=== PATIENT | female | born 1985 | race Caucasian/White ===

== ENCOUNTER 2020-02-02 10:35 | Emergency (ER) | payer OTHER, SELFPAY ==
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
[2020-02-02 10:50] LABS: Apearance,Urine Clear (Clear); Color,Urine Orange (Yellow); Specific Gravity, Urine 1.015 (1.005-1.030)
[2020-02-02 10:51] VITALS: BP 131/90; PULSE 107; RESP 14; O2SAT 100; BMI 18.6
[2020-02-02 10:51] LABS: Bilirubin,Urine Negative (Negative); Blood, Urine 1+ (Negative); Glucose,Urine (UA) Negative (Negative); Ketones,Urine Negative (Negative); Protein,Urine 1+ (Negative); UTC Leukocyte Esterase,Urine Trace (Negative); UTC Nitrate,Urine Positive (Negative); Urobilinogen,Urine 2 EU/dl (0.2)
[2020-02-02 10:59] VITALS: BP 131/90; PULSE 107; RESP 14; TEMP 36.7; O2SAT 100
== END 2020-02-02 11:01 | disposition home or self-care (01) ==
PROVIDERS: Emergency Provider Nurse Practitioner Family; PCP Family Medicine
DX: N30.00 Acute cystitis without hematuria (principal); F17.210 Nicotine dependence, cigarettes, uncomplicated
CPT/HCPCS: 81003; 87086; 87088; 87186; 99201

== ENCOUNTER → 2020-02-28 13:54 | Outpatient (CLI) | payer OTHER, SELFPAY | PROVIDERS: Visit Provider Obstetrics & Gynecology | DX: Z32.00 Encounter for pregnancy test, result unknown (principal) | CPT/HCPCS: 36415; 84702 ==

== ENCOUNTER → 2020-03-13 11:09 | Outpatient (CLI) | payer OTHER, SELFPAY ==
--- NOTE | 2020-03-13 11:09 | US_ITS ---
PROCEDURE: US OB <= 14 WEEKS FETUS CLINICAL INDICATION: US OB Dates Early Ob ultrasound for dates COMPARISON: No exams were available for comparison FINDINGS: An intrauterine gestational sac is present with a pole with a crown-rump length of 3.33cm correlating to gestational age of 10weeks 2days. heart tones are present with an FHR of 156bpm. Yolk sac is noted. The chorion and amnion have not yet fused. Unremarkable adnexa. IMPRESSION: Live IUP at 10 weeks 2 days Estimated due date by Ultrasound is 10/07/2020 Dictated by: Guzman Redmond MD 03/13/2020 15:46 Guzman Redmond MD in [place] 03/13/2020 15:46
== END ==
PROVIDERS: PCP Family Medicine; Visit Provider Obstetrics & Gynecology
DX: O26.841 Uterine size-date discrepancy, first trimester (principal)
CPT/HCPCS: 76801

== ENCOUNTER → 2020-03-26 09:55 | Outpatient (CLI) | payer OTHER, SELFPAY ==
[2020-03-26 11:17] LABS: Basophils % 0.4 % (0.1-2.0); Eosinophils # 0.3 K/mm3 (0.0-0.4); Eosinophils % 3.8 % (0.1-12.0); Hematocrit 36.7 % (37.0-47.0); Hemoglobin 12.7 g/dL (12.2-16.2); Lymphocytes # 2.2 K/mm3 (0.7-4.5); Lymphocytes % 26.7 % (10-50); Mean Corpuscular HGB Conc 34.7 g/dL (31.8-35.4); Mean Corpuscular Hemoglobin 29.7 pg (27.0-31.2); Mean Corpuscular Volume 85.6 fl (81-99); Mean Platelet Volume 7.4 fl (7.4-10.4); Monocytes # 0.3 K/mm3 (0.1-1.0); Monocytes % 3.6 % (1.7-9.3); Neutrophils # 5.4 K/mm3 (1.8-7.8); Neutrophils % 65.6 % (37.0-80.0); Platelet Count 239 K/mm3 (142-424); Red Blood Count 4.28 M/mm3 (4.20-5.40); Red Cell Distribution Width 14.3 % (11.5-17.5); White Blood Count 8.2 K/mm3 (4.8-10.8)
[2020-03-27 09:51] LABS: HIV Screen 4th Generation wRfx Non Reactive (Non Reactive); Rubella Antibodies, IgG 7.07 index (Immune >0.99)
[2020-03-27 10:49] LABS: Hepatitis B Surface Antigen Negative (Negative); Hepatitis C Antibody <0.1 s/co ratio (0.0-0.9)
[2020-03-27 13:25] LABS: Rapid Plasma Reagin Ab Titer Non Reactive (NonRea<1:1)
== END ==
PROVIDERS: Visit Provider Obstetrics & Gynecology
DX: Z34.90 Encounter for supervision of normal pregnancy, unspecified, unspecified trimester (principal)
CPT/HCPCS: 36415; 85025; 86592; 86703; 86762; 86850; 87340; 87380; G0432

== ENCOUNTER → 2020-06-05 14:48 | Outpatient (CLI) | payer OTHER, SELFPAY ==
--- NOTE | 2020-06-05 14:49 | US_ITS ---
PROCEDURE: US OB >= 14 WEEKS FETUS CLINICAL INDICATION: US OB Complete COMPARISON: US US OB <= 14 WEEKS FETUS from 03/13/2020 FINDINGS: There is a single live fetus which is in breech presentation. Placenta is posterior and grade 1. The cervix is closed and measures 4 cm. Placenta previa is present with placenta covering the cervical os. Complete survey performed and was unremarkable on the submitted images as in PACS. No discrete anomalies identified on survey imaging by technologist. Active fetus. Three-vessel cord with satisfactory umbilical cord insertion. 4- chamber heart noted. Survey of brain & ventricles Unremarkable. Face and neck survey unremarkable. Diaphragm and chest views unremarkable. Abdomen: Both kidneys noted and unremarkable. Stomach noted and satisfactory. Spine: Survey of the spine satisfactory with no anomalies identified nor imaged. Both arms and legs noted. Amniotic Fluid: Adequate. Maternal adnexa: No significant findings. Measurements: Average ultrasound age 22weeks 1day. Gestational Age 22weeks 2days Estimated due date by ultrasound age 0710/08/2020. Estimated weight 472g BPD = 22weeks 2days OFD = 22weeks 3days HC = 21weeks 4days AC = 22weeks 1day FL = 22weeks 2days Growth Percentile= 32Percent% Heart Rate = 149bpm Cerebellum = 22weeks 2days Humerus = 22weeks HC/AC is 1.13 CI is 0.78 FL/BPD is 0.71 FL/AC is 0.22 IMPRESSION: Single live IUP in breech presentation. Average ultrasound age is 22 weeks 1 day. No obvious anomalies are evident. There is posterior placenta with placenta previa. Follow-up suggested to confirm 3rd trimester location. Dictated by: Guzman Redmond MD 06/06/2020 15:25 Guzman Redmond MD in [place] 06/06/2020 15:25
== END ==
PROVIDERS: PCP Family Medicine; Visit Provider Obstetrics & Gynecology
DX: Z36.0 Encounter for antenatal screening for chromosomal anomalies (principal)
CPT/HCPCS: 76805

== ENCOUNTER 2022-05-17 19:49 | Emergency (ER) | payer OTHER, SELFPAY ==
[2022-05-17 19:52] VITALS: BP 117/79; PULSE 110; RESP 17; TEMP 37; O2SAT 98; BMI 20.3
[2022-05-17 20:21] LABS: Microscopic, Urine URINE MICROSCOPIC (MICROSCOPIC)
--- NOTE | 2022-05-17 20:25 | HMH.EDUROGF ---
Discharge Plan Disposition Patient Disposition: Home, Self-Care Prescriptions Prescriptions: New levofloxacin 500 mg tablet 500 mg PO DAILY Qty: 7 0RF No Action buprenorphine HCl 8 mg tablet, sublingual 8 mg SUBLINGUAL DAILY Referrals Follow up/Referrals: Anand Robertson MD [Primary Care Provider] - See instructions Clinical Impressions Clinical Impression: UTI (urinary tract infection) Instructions Patient Instructions: DI for Urinary Tract Infection (UTI) Discharge ED Provider: Manny (ED),Miguel Ángel Rodriguez Female Urogenital HPI General Chief complaint: Urogenital-Female Stated complaint: Possible UTI With Blood&Clots Time Seen by Provider: 05/17/22 20:25 Mode of Arrival: Family Vehicle Source of Information: Patient and Medical Record Limitations: No Limitations Description of Symptoms (Recalled from ER Triage Doc. by RN): Pt c/o UTI symptoms that began yesterday. States she felt she was not voiding well. Today, she noticed burning with urination and leaking urine. This evening reports that the incontinence is worse and began to have small blood clots in her urine. She did take Azo & Motrin @ 1700 today. No other medication [employer]. Denies fever, chills, or n/v/d. Denies any abd pain, tenderness or distention. History of Present Illness HPI Narrative: lower abd pain over the last 2 days with dysuria and urgency and blood in urine Complaint: dysuria and UTI Onset (ago): day(s) Location: suprapubic Severity: moderate Duration: intermittent Urinary Symptoms: dysuria, urgency, frequency and hematuria Related Data Home Medications Medication Instructions Recorded Confirmed buprenorphine HCl 8 mg sublingual 8 mg sublingual DAILY hx of 03/26/20 05/17/22 tablet addiction Previous Rx's Medication Instructions Recorded levofloxacin 500 mg tablet 500 mg PO DAILY #7 tabs 05/17/22 Allergies Allergy/AdvReac Type Severity Reaction Status Date / Time No Known Drug Allergies Allergy Unknown Verified 08/06/20 13:34 [facility] Disclaimer: The information contained in this section may have been updated after the patient was seen, as this information can be updated by other users. Social History Smoking Status: Current every day smoker tobacco type: cigarettes packs per day: 1 second hand exposure: Yes alcohol intake: never substance use type: former substance user and heroin current occupational status: other Travel in the last 8 weeks: None ROS Obtained: Yes All systems reviewed & no additional complaints except as documented Physical Exam General General appearance: alert Head Head exam: normocephalic Eye Eye exam: Present PERRL and EOMI ENT ENT exam: Present mucous membranes moist Neck Neck exam: Present trachea midline Respiratory Respiratory exam: Absent respiratory distress Cardiovascular Cardiovascular exam: Present regular rate Abdominal Exam Abdominal exam: Present soft Abdominal tenderness: Present suprapubic and moderate Extremities Exam Extremities exam: Present full ROM Neurological Exam Neurological exam: Present alert and CN II-XII intact; Absent motor sensory deficit Psychiatric Psychiatric exam: Present normal affect Skin Skin exam: Absent rash Medical Decision Making Medical Records Medical records reviewed: Yes I reviewed the patient's medical records. Arnaud Inquiry Pt receiving controlled substance: No Vital Signs: 05/17/22 19:52 05/17/22 21:14 05/17/22 21:14 Temperature 98.6 F 98.6 F Temperature Source Oral Pulse Rate 90 Pulse Rate [Right] 110 H Respiratory Rate 17 18 Blood Pressure 115/72 Blood Pressure [Right Arm] 117/79 Blood Pressure Mean [Right Arm] 91 Blood Pressure Source [Right Arm] Automatic Cuff 02 Sat by Pulse Oximetry 98 Oxygen Delivery Method Room Air Room Air Room Air Lab Data Lab results reviewed: Yes I reviewed the patient's lab results. Lab Results 05/17/22 20:02: Urine Color Red, Urin
[2022-05-17 20:29] LABS: Appearance,Urine TURBID (Clear); Blood, Urine 3+ (Negative); Color,Urine RED (Yellow); Glucose,Urine (UA) 1+ (Negative); Ketones,Urine 1+ (Negative); Leukocyte Esterase,Urine 3+ (Negative); Nitrate,Urine POSITIVE (Negative); PH,Urine 6.5 (5.0-8.5); Protein,Urine 3+ (Negative); Urobilinogen,Urine >=8.0 EU/dl (0.2)
[2022-05-17 20:39] LABS: Bilirubin,Urine 3+ (Negative)
[2022-05-17 20:59] LABS: Bacteria,Urine 2+ /lpf; RBC,Urine TNTC #/hpf (0-3); WBC,Urine 20-50 #/hpf (0-3)
[2022-05-17 21:14] VITALS: BP 115/72; PULSE 90; RESP 18; TEMP 37; O2SAT 99
[2022-05-17 21:27] LABS: Basophils # 0.1 K/mm3 (0-0.2); Basophils % 1.2 % (0.1-2.0); Eosinophils # 0.8 K/mm3 (0.0-0.4); Eosinophils % 6.7 % (0.1-12.0); Hematocrit 37.7 % (37.0-47.0); Hemoglobin 12.9 g/dL (12.2-16.2); Lymphocytes # 2.2 K/mm3 (0.7-4.5); Lymphocytes % 18.6 % (10-50); Mean Corpuscular HGB Conc 34.3 g/dL (31.8-35.4); Mean Corpuscular Hemoglobin 29.8 pg (27.0-31.2); Mean Corpuscular Volume 86.7 fl (81-99); Mean Platelet Volume 7.5 fl (7.4-10.4); Monocytes # 0.5 K/mm3 (0.1-1.0); Monocytes % 3.8 % (1.7-9.3); Neutrophils # 8.1 K/mm3 (1.8-7.8); Neutrophils % 69.7 % (37.0-80.0); Platelet Count 281 K/mm3 (142-424); Red Blood Count 4.34 M/mm3 (4.20-5.40); Red Cell Distribution Width 13.1 % (11.5-17.5); White Blood Count 11.6 K/mm3 (4.8-10.8)
[2022-05-17 21:33] LABS: Alanine Aminotransferase 13 U/L (12-78); Albumin Level 4.5 g/dl (3.5-5.0); Albumin/Globulin Ratio 1.9 (1.1-1.8); Alkaline Phosphatase 52 U/L (38-126); Anion Gap 7.6 mEq/L (5-15); Aspartate Amino Transferase 33 U/L (14-36); Bilirubin,Total 1.5 mg/dl (0.2-1.3); Blood Urea Nitrogen 11 mg/dl (7-17); Carbon Dioxide 25 mmol/L (22.0-30.0); Chloride 111 mmol/L (98-107); Creatinine Clearance Estimated 79 mL/min (50-200); Estimated Glomerular Filt Rate 80 ml/min (>60); GFR (African American) 97 ML/MIN (>60); Globulin 2.4 g/dL (1.3-3.2); Glucose 89 mg/dl (74-100); Potassium 3.6 mmoL/L (3.5-5.1); Sodium 140 mmol/L (136-145); Total Protein,Serum 6.9 g/dl (6.3-8.2)
== END 2022-05-17 21:53 | disposition home or self-care (01) ==
PROVIDERS: Emergency Provider Emergency Medicine; PCP Family Medicine
DX: N39.0 Urinary tract infection, site not specified (principal); F17.210 Nicotine dependence, cigarettes, uncomplicated
CPT/HCPCS: 80053; 81001; 85025; 87086; 96361; 96374; 96375; 99285; J0696

== ENCOUNTER 2022-12-20 09:16 | Emergency (ER) | payer OTHER, SELFPAY ==
[2022-12-20 09:17] VITALS: BP 152/79; PULSE 72; RESP 16; TEMP 36.7; O2SAT 100; BMI 18.6
--- NOTE | 2022-12-20 09:28 | PC.NURSE ---
Dr. Aguayo at [facility] for pt eval
--- NOTE | 2022-12-20 09:48 | HMH.EDGENADL ---
Discharge Plan Disposition Patient Disposition: Home, Self-Care Prescriptions Prescriptions: New amoxicillin-pot clavulanate 875-125 mg tablet 1 tab PO BID 7 Days Qty: 14 0RF No Action buprenorphine HCl 8 mg tablet, sublingual 8 mg SUBLINGUAL DAILY levofloxacin 500 mg tablet 500 mg PO DAILY Qty: 7 0RF Referrals Follow up/Referrals: Anand Robertson MD [Primary Care Provider] - See instructions Activity Restrictions/Add. Instructions Additional Instructions/Restrictions: Call your family doctor to establish care for this visit to the emergency department and schedule follow-up within 48 hours to ensure improvement. If you have any worsening of your condition or any other concerning signs or symptoms, return to the emergency department or your primary care doctor for further evaluation. Augmentin twice daily for 7 days Clinical Impressions Clinical Impression: Abscess, dental Discharge ED Provider: Ernesto Aguayo General Adult HPI General Chief complaint: Dental/Oral Stated complaint: root canal 12/16, face swollen Time Seen by Provider: 12/20/22 09:18 Mode of Arrival: Ambulatory Source of Information: Patient Limitations: No Limitations Description of Symptoms (Recalled from ER Triage Doc. by RN): Patient reports having a root canal on Wednesday and yesterday she began to have facial swelling. States she just can't take it anymore. 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 Patient states facial swelling started 2 days prior. Since that time, has gotten worse. Dentist is not open today, given it is Wednesday, 12/20, so came to the ER for further evaluation. She states she has swelling on the roof of her mouth as well which is new and swelling in the left side of her face. No fevers or chills, nausea, vomiting, or any other concerning symptoms. Related Data Home Medications Medication Instructions Recorded Confirmed buprenorphine HCl 8 mg sublingual 8 mg sublingual DAILY hx of 03/26/20 05/17/22 tablet addiction Previous Rx's Medication Instructions Recorded levofloxacin 500 mg tablet 500 mg PO DAILY #7 tabs 05/17/22 amoxicillin 875 mg-potassium 1 tab PO BID 7 days #14 tabs 12/20/22 clavulanate 125 mg tablet Allergies Allergy/AdvReac Type Severity Reaction Status Date / Time No Known Drug Allergies Allergy Unknown Verified 08/06/20 13:34 [facility] Disclaimer: The information contained in this section may have been updated after the patient was seen, as this information can be updated by other users. Social History Smoking Status: Current every day smoker tobacco type: cigarettes packs per day: 1 second hand exposure: Yes alcohol intake: never substance use type: former substance user and heroin current occupational status: other Travel in the last 8 weeks: None ROS Obtained: Yes All systems reviewed & no additional complaints except as documented Physical Exam General General appearance: alert and in no apparent distress Head Head exam: atraumatic, normocephalic and other (Facial swelling left side of face with induration. Painful to touch. No lymphadenopathy.) Eye Eye exam: Present normal appearance, PERRL and EOMI ENT ENT exam: Present mucous membranes moist and other (swelling and fluctuance hard palate behind tooth 9. No evidence of tonsillitis, exudate, pharyngeal erythema, uvular deviation, palatal swelling, dental abscess, angioedema, or other abnormal paresh pharyngeal findings) Neck Neck exam: Present normal inspection, full ROM and trachea midline Respiratory Respiratory exam: Absent respiratory distress, wheezes, stridor, accessory muscle use or prolonged expiratory phase Cardiovascular Cardiovascular exam: Present normal rhythm Abdominal Exam Abdominal exam: Present soft; Absent
[2022-12-20 10:47] VITALS: BP 149/70; PULSE 70; RESP 20; TEMP 36.7; O2SAT 97
== END 2022-12-20 10:48 | disposition home or self-care (01) ==
PROVIDERS: Emergency Provider Emergency Medicine; PCP Family Medicine
DX: R22.0 Localized swelling, mass and lump, head (principal); K12.2 Cellulitis and abscess of mouth; F11.11 Opioid abuse, in remission; F17.210 Nicotine dependence, cigarettes, uncomplicated
CPT/HCPCS: 41008; 99283

== ENCOUNTER 2023-01-09 11:59 | Emergency (ER) | payer OTHER, SELFPAY ==
[2023-01-09 12:00] VITALS: BP 153/77; PULSE 98; RESP 18; TEMP 36.8; O2SAT 99; BMI 19.5
[2023-01-09 12:31] VITALS: BP 151/82; PULSE 88; O2SAT 99
--- NOTE | 2023-01-09 13:23 | PC.NURSE ---
Assumed patient care at this time
[2023-01-09 13:27] VITALS: BP 122/86; PULSE 58; O2SAT 99
[2023-01-09 13:37] VITALS: BP 124/59; PULSE 66; RESP 16; O2SAT 97
--- NOTE | 2023-01-09 13:39 | PC.NURSE ---
Rounded on patient; updated on plan of care. Nothing needed at this time. Call light within reach
--- NOTE | 2023-01-09 13:58 | HMH.EDGENADL ---
Discharge Plan Disposition Patient Disposition: Home, Self-Care Condition: Good Prescriptions Prescriptions: New hydroxyzine pamoate 25 mg capsule 25 mg PO Q6H PRN (Reason: itching) Qty: 16 0RF methylprednisolone [Medrol (Marko)] 4 mg tablets,dose pack 4 mg PO DAILY Qty: 21 0RF No Action buprenorphine HCl 8 mg tablet, sublingual 8 mg SUBLINGUAL DAILY levofloxacin 500 mg tablet 500 mg PO DAILY Qty: 7 0RF amoxicillin-pot clavulanate 875-125 mg tablet 1 tab PO BID 7 Days Qty: 14 0RF Referrals Follow up/Referrals: Anand Robertson MD [Primary Care Provider] - See instructions Activity Restrictions/Add. Instructions Additional Instructions/Restrictions: Please follow-up with your primary care provider. Please return to the emergency department if you develop any new or worsening symptoms or become concerned for your health. You have been given a prescription for hydroxyzine, please take this as directed. As we discussed, recommend that you do not use Benadryl, hydroxyzine at the same time. You have also been given a prescription for a steroid course, please complete this as prescribed. Clinical Impressions Clinical Impression: Acute urticaria Allergic reaction Qualifiers: Encounter type: initial encounter Qualified Code(s): T78.40XA - Allergy, unspecified, initial encounter Discharge ED Provider: Corey Scott I General Adult HPI General Chief complaint: Allergic Reaction Stated complaint: POSSIBLE ALLERGIC REACTION, RASH Time Seen by Provider: 01/09/23 12:03 Mode of Arrival: Family Vehicle Source of Information: Patient Limitations: No Limitations Description of Symptoms (Recalled from ER Triage Doc. by RN): Pt c/o possible allergic reaction to recent antibiotic use. She had a root canal on 12/16 and she was prescribed Augmentin for 21 days. She was then changed to Amoxicillin for a 30 days supply d/t oral abscess. Wednesday she developed a rash and hives t/o her body. She was very itchy. [facility] her Prednisone 15 day supply. She is also taking tylenol, motrin, and benadryl. She last took Benadryl @ 0600 today (25mg). History of Present Illness HPI narrative: Patient is a 37-year-old female presenting to the emergency department due to concern for allergic reaction, hives and swelling of her face. History was conducted with the patient at bedside. Patient reports that she initially had a tooth extraction in November of this year. Following that extraction, had a adjacent abscess for which she was put on a prescription for Augmentin. She reports that she finished that prescription without difficulty. However, then had recurrence of symptoms in mid December, roughly January 01, was started on amoxicillin at that time. She reports that she took the last dose of amoxicillin Wednesday morning, Wednesday evening started to have worsening swelling, itching of her face. Was seen in urgent care and given a prescription for prednisone, had improvement in symptoms. However, after finishing her steroid course, had recurrence of symptoms. She reports that she has swelling of the face as well as hives, itching in her scalp. She denies any difficulty breathing, shortness of breath, throat swelling, nausea, vomiting, diarrhea, abdominal pain. Does not have any known history of anaphylaxis. Denies any fevers. Also denies any new foods, exposures. Related Data Home Medications Medication Instructions Recorded Confirmed buprenorphine HCl 8 mg sublingual 8 mg sublingual DAILY hx of 03/26/20 05/17/22 tablet addiction Previous Rx's Medication Instructions Recorded levofloxacin 500 mg tablet 500 mg PO DAILY #7 tabs 05/17/22 amoxicillin 875 mg-potassium 1 tab PO BID 7 days #14 tabs 12/20/22 clavulanate 125 mg tablet hydroxyzine pamoate 25 mg capsule 25 mg PO Q6H PRN itching #16 caps 01/09/23 methylprednisolone 4 mg tablets in 4 mg PO DAILY #21 tabs 01/09/23
--- NOTE | 2023-01-09 14:00 | PC.NURSE ---
rounded on pt at this time, pt sitting up on side of the bed. States no needs at this time
[2023-01-09 14:05] VITALS: BP 114/58; PULSE 81; RESP 16; O2SAT 96
[2023-01-09 14:06] VITALS: BP 114/58; PULSE 77; RESP 16; TEMP 36.8; O2SAT 97
== END 2023-01-09 14:08 | disposition home or self-care (01) ==
PROVIDERS: Emergency Provider Emergency Medicine; PCP Family Medicine
DX: L50.8 Other urticaria (principal); T78.40XA Allergy, unspecified, initial encounter; F17.210 Nicotine dependence, cigarettes, uncomplicated
CPT/HCPCS: 99283